=== PATIENT | male | born 2000 ===

== ENCOUNTER 2024-03-18 05:01 | Outpatient (CLI) | payer SELFPAY ==
[2024-03-18] MEDS: Inhaler, Assist Device 1 EACH MC (14:53)
[2024-03-18] MEDS: Albuterol HFA 18 GM 200 PUFF INH IH (14:53)
[2024-03-18] MEDS: Methacholine 100 MG VIAL IH (14:53)
--- NOTE | 2024-03-18 14:56 | W.PFT ---
Date of service: 03/18/24 Time of Service: 13:00 Pulmonary Function Test Result Requesting Provider Tracy Mills Indications: Prelim for Impression PFTs Normal spirometry w/ no reversibility post bronchodilator normal flow volume loop. Methacholine challenge Baseline FEV1 3.37L Patient demonstrated 23% decrease in FEV1 after 2mg/ml of Methacholine w/ prompt improvement after albuterol. Impression: Positive Test suggestive of Asthma. Clinical Correlation therefore is recommended.
== END 2024-03-18 05:02 | disposition home or self-care (01) ==
LOC: RT 05:02
PROVIDERS: Visit Provider Nurse Practitioner Family
DX: Z02.3 Encounter for examination for recruitment to armed forces (principal)
CPT/HCPCS: 00123; 94060; 94070; J7674